=== PATIENT | female | born 1990 | race Hispanic/Latino ===

== ENCOUNTER 2019-07-06 15:57 | Emergency (ER) | payer SELFPAY ==
[~2019-07-06] VITALS: Ht 157.5 cm; Wt 57.2 kg
--- OUTSIDE RECORDS SUMMARY | 2019-07-06 16:01 | XMS REPORT ---
Author [facility] Address Unknown Phone Unavailable Care Team Providers Care Hairspring Cutter Name Role Phone YANG VILLALTA Unavailable Unavailable Payers Payer Name Policy Type Policy Number Effective Date Expiration Date Problems This patient has no known problems. Allergies, Adverse Reactions, Alerts Allergy Name Allergy Type Status Severity Reaction(s) Onset Date Inactive Date Treating Clinician Comments No Known Allergies DA Active U 2012-12-30 00:00:00 Medications This patient has no known medications. Results Test Description Test Time Test Comments Text Results Atomic Results Result Comments HCG BLOOD 2019-06-17 20:23:00 HCG BLOOD (test code=HCG) < 2.39 IU/L HCG in non- individuals < 5.0 IU/L (mIU/mL)HCG results greater than or equal to 25 IU/L are consideredPositive. Detection of very low levels of HCG does not excludepregnancy. Repeat testing after 48 hours is recommended. Gestational Age:1-10 weeks 44.71-256,740 IU/L(mIU/mL)11-15 weeks 11,556-256,380 IU/L(mIU/mL)16-22 weeks 7,480.8-111,954 IU/L(mIU/mL)23-40 weeks 1,531.1-101,556 IU/L(mIU/mL) This assay should not be used to diagnose any conditionunrelated to . - CT NECK [id number] 20:22:00 FAX: Jany Valiente [phone] [place]: St: REG Name: SAUNDRA WOODWARDwood : 8 Age/S: 28/F [address] Unit: [id number] Loc: [place] [address] Phys: Jany Junior CIRCLE EDGER Acct: [id number] Dis Date: Status: REG ER PHONE #: [phone] Exam Date: 06/17/20192004 FAX #: [phone] Reason: pain right side neck EXAMS: CPT CODE: [id number] CT NECK W/CONTRAST 07229 T18 EXAM: CT NECK WITH CONTRAST HISTORY: pain right side neck TECHNIQUE: Axial CT images were obtained of the neck with intravenous contrast. Cor onal and sagittal reformatted images were created from the data set. One or more of the following dose reduction techniques were used: Automated exposure control, adjustment of the mA and/or kV according to p atient size, and/or iterative reconstruction. COMPARISON: None FINDINGS: The aerodigestive structures are within normal limit s. Specifically, the nasal cavity, nasopharynx, oral cavity, oropharynx, hypopharynx, larynx, and visualized trachea and esophagus demonstrate no m asses or abnormal enhancement. No pathologically enlarged, n ecrotic, or otherwise abnormal lymph nodes. The parotid and submandibular glands appear within normal limits. The thyroid gland is no rmal in size without focal abnormality. Evaluation of the visualiz ed portions of the brain parenchyma and orbits demonstrates no abnormality . The visualized paranasal sinuses are predominantly clear. The tympanom astoid cavities are unopacified. There is normal intravascular enhancemen t. Limited evaluation of the lung apices demonstrates no abnormali ty. The visualized osseous structures are within normal limits. Following administration of intravenous contrast material, there is no abnormal enhancement. IMPRESSION: Normal neck CT. PAGE 1 Signed Report (CONTINUED) FAX: Jany Valiente [phone] [place]: St: REG ----- Name: SAUNDRA HAILE : 1990 Age/S: 28/F [address] Unit: [id number] Loc: [place] [address] Phys: Jany Sims NP Acct: [id number] Dis Date: Status: REG ER PHON E #: [phone] Exam Date: 06/17/20192004 FAX #: Reason: pain right side neck EXAM S: CPT CODE: [id number] CT NEC K W/CONTRAST 63835 <Continued> at 2021 Reported and signed by: Juan Posada MD CC: Jany Junior NP Technologist: Joyce Persaud Trnscrd Dt/Tm: 06/17/2019 (2021) [email or web address] Orig Print D/T: S: 06/17/2019 (2024 PAGE 2 Signed Report BEDSIDE [id number] 20:09:00* Test Item Value Reference Range Comments BEDSIDE CREATININE (test code=CREATBED) 0.6 mg/dL 0.52-1.04 COMPREHENSIVE METABOLIC [id number] 19:52:00* Test Item Value Reference Range Comments SODIUM (test code=NA) 140 mmol/L 137-145 POTASSIUM (test code=K) 4.2 mmol/L 3.4-5.0 CHLORIDE (test code=CL) 101 mmol/L 98-107 CARBON DIOXIDE (test code=CO2) 27 mmol/L 22-30 GLUCOSE (test code=GLU) 107 mg/dL 74-106 BLOOD UREA NITROGEN (test code=BUN) 11 mg/dL 7-17 GLOMERULAR FILTRATION RATE (test code=GFR) 125 >60 The estimated glomerular filtration rate is computed usingpatient race, age (>18), sex, and serum creatinine. If anyof the needed data elements are missing the Laboratory cannot compute an estimation of the glomerular filtration rate. CREATININE (test code=CREAT) 0.6 mg/dL 0.5-1.0 TOTAL PROTEIN (test code=PROT) 8.5 g/dL 6.3-8.2 ALBUMIN (test code=ALB) 4.6 g/dL 3.5-5.0 CALCIUM (test code=CA) 10.2 mg/dL 8.4-10.2 BILIRUBIN TOTAL (test code=BILT) 0.4 mg/dL 0.2-1.3 BILIRUBIN CONJUGATED (test code=BILCON) 0 mg/dL 0-0.3 ~~~~~~~~~~~~~~~~~~~~~~~~~~~~~~~~~~~~~~~~~~~~~~~~~~~~~~~~~~~~CONJUGATED BILIRUBIN IS THE REPLACEMENT ASSAY FOR DIRECTBILIRUBIN.~~~~~~~~~~~~~~~~~~~~~~~~~~~~~~~~~~~~~~~~~~~~~~~~~~~~~~~~~~~~ BILIRUBIN UNCONJUGATED (test code=BILUNC) 0.3 mg/dL 0-1.1 SGOT/AST (test code=AST) 18 U/L 15-46 SGPT/ALT (test code=ALT) 24 U/L 13-69 ALKALINE PHOSPHATASE (test code=ALKP) 98 U/L 38-126 CBC W/AUTO [id number] 19:42:00* Test Item Value Reference Range Comments WHITE BLOOD CELL (test code=WBC) 12.2 x10 3/uL 5.0-12.0 RED BLOOD CELL (test code=RBC) 4.93 x10 6/uL 4.20-5.40 HEMOGLOBIN (test code=HGB) 13.4 g/dL 12.0-16.0 HEMATOCRIT (test code=HCT) 41.0 % 36.0-46.0 MEAN CELL VOLUME (test code=MCV) 83 fL 81-99 MEAN CELL HGB (test code=MCH) 27.2 pg 27-31 MEAN CELL HGB CONCENTRATION (test code=MCHC) 32.7 g/dL 33-37 RED CELL DISTRIBUTION WIDTH (test code=RDW) 14.3 % 11.5-15.5 PLATELET COUNT (test code=PLT) 230 x10 3/uL 130-400 MEAN PLATELET VOLUME (test code=MPV) 12.4 fL 9.4-16.4 NEUTROPHIL % (test code=NT%) 70.9 % 43-65 IMMATURE GRANULOCYTE % (test code=IG%) 0.3 % 0.0-2.0 LYMPHOCYTE % (test code=LY%) 22.8 % 20.5-45.5 MONOCYTE % (test code=MO%) 5.4 % 5.5-11.7 EOSINOPHIL % (test code=EO%) 0.4 % 0.9-2.9 BASOPHIL % (test code=BA%) 0.2 % 0.2-1.0 NUCLEATED RBC % (test code=NRBC%) 0.0 % 0-1.0 NEUTROPHIL # (test code=NT#) 8.68 x10 3/uL 2.2-4.8 IMMATURE GRANULOCYTE # (test code=IG#) 0.04 x10 3/uL 0-0.03 LYMPHOCYTE # (test code=LY#) 2.79 x10 3/uL 1.3-2.9 MONOCYTE # (test code=MO#) 0.66 x10 3/uL 0.3-0.8 EOSINOPHIL # (test code=EO#) 0.05 x10 3/uL 0.0-0.2 BASOPHIL # (test code=BA#) 0.02 x10 3/uL 0.0-0.1 RAD, CHEST, 1 VIEW, NON [id number] 03:27:00Reason for exam:->chest painIs the patient ?->UnknownShould this be performed at the bedside?->YesFINAL REPORT Chest one view. Clinical history: chest pain Comparison: None. Technique: A single frontal view of the chest was obtained. Findings: The cardiomediastinal contours are normal. There is no focal pulmonary consolidation, pleural effusion or pneumothorax. There is no pulmonary edema. The bony thorax is unremarkable. Impression: Clear lungs. No pneumothorax. Signed: Randolph Cuevas [facility] Verified Date/Time: 05/22/2019 03:27:04 Kathe ctronically signed by: RANDOLPH CUEVAS MD on 05/22/2019 03:27 AM COMPREHENSIVE METABOLIC [id number] 03:05:00* Test Item Value Reference Range Comments TOTAL PROTEIN (BEAKER) (test ardo=140) 8.8 gm/dL 6.0-8.3 ALBUMIN (BEAKER) (test jeti=7637) 4.6 g/dL 3.5-5.0 ALKALINE PHOSPHATASE (BEAKER) (test sgxf=021) 135 U/L 40-150 BILIRUBIN TOTAL (BEAKER) (test fdpo=730) 0.3 mg/dL 0.2-1.2 SODIUM (BEAKER) (test pjrt=808) 137 meq/L 136-145 POTASSIUM (BEAKER) (test tgax=330) 3.6 meq/L 3.5-5.1 CHLORIDE (BEAKER) (test twfm=095) 105 meq/L 98-107 CO2 (BEAKER) (test qtgd=872) 22 meq/L 22-29 BLOOD UREA NITROGEN (BEAKER) (test hnhs=139) 15 mg/dL 7-21 CREATININE (BEAKER) (test wkkj=928) 0.94 mg/dL 0.57-1.25 GLUCOSE RANDOM (BEAKER) (test dkhg=456) 117 mg/dL 70-105 CALCIUM (BEAKER) (test xubb=731) 9.7 mg/dL 8.4-10.2 AST (SGOT) (BEAKER) (test hxor=529) 19 U/L 5-34 ALT (SGPT) (BEAKER) (test fplf=329) 18 U/L 6-55 EGFR (BEAKER) (test ibri=9193) mL/min/1.73 sq m INSUFFICIENT CLINICAL DATA TO CALCULATE ESTIMATED GFR. SCREEN, [id number] 02:56:00* Test Item Value Reference Range Comments TEST URINE (BEAKER) (test sddm=778) Negative URINALYSIS WITH MICROSCOPIC IF [id number] 02:55:00* Test Item Value Reference Range Comments COLOR (BEAKER) (test diwi=558) Light Yellow CLARITY (BEAKER) (test zqeo=507) Clear SPECIFIC GRAVITY UA (BEAKER) (test fywi=077) 1.003 1.001-1.035 PH UA (BEAKER) (test koia=370) 6.5 5.0-8.0 PROTEIN UA (BEAKER) (test ltfv=373) Negative Negative GLUCOSE UA (BEAKER) (test avgj=793) Negative Negative KETONES UA (BEAKER) (test couu=057) 10 mg/dL Negative BILIRUBIN UA (BEAKER) (test xufo=771) Negative Negative BLOOD UA (BEAKER) (test knwb=737) Negative Negative NITRITE UA (BEAKER) (test sxvv=400) Negative Negative LEUKOCYTE ESTERASE UA (BEAKER) (test okdg=150) Negative Negative UROBILINOGEN UA (BEAKER) (test fqfk=493) 0.2 mg/dL 0.2-1.0 SOURCE(BEAKER) (test txeb=1732) CBC W/PLT COUNT & AUTO [id number] 02:36:00* Test Item Value Reference Range Comments WHITE BLOOD CELL COUNT (BEAKER) (test eqxo=557) 12.0 K/ L 3.5-10.5 RED BLOOD CELL COUNT (BEAKER) (test voqn=610) 4.57 M/ L 3.93-5.22 HEMOGLOBIN (BEAKER) (test ohfd=029) 12.6 GM/DL 11.2-15.7 HEMATOCRIT (BEAKER) (test onkp=429) 39.3 % 34.1-44.9 MEAN CORPUSCULAR VOLUME (BEAKER) (test eoan=923) 86.0 fL 79.4-94.8 MEAN CORPUSCULAR HEMOGLOBIN (BEAKER) (test uhnl=387) 27.6 pg 25.6-32.2 MEAN CORPUSCULAR HEMOGLOBIN CONC (BEAKER) (test dpfj=100) 32.1 GM/DL 32.2-35.5 RED CELL DISTRIBUTION WIDTH (BEAKER) (test alqa=219) 14.6 % 11.7-14.4 PLATELET COUNT (BEAKER) (test eeis=584) 256 K/CU MM 150-450 MEAN PLATELET VOLUME (BEAKER) (test wehw=334) 12.3 fL 9.4-12.3 NUCLEATED RED BLOOD CELLS (BEAKER) (test jbit=371) 0 /100 WBC 0-0 NEUTROPHILS RELATIVE PERCENT (BEAKER) (test jhjp=217) 77 % LYMPHOCYTES RELATIVE PERCENT (BEAKER) (test nwtr=668) 17 % MONOCYTES RELATIVE PERCENT (BEAKER) (test whrs=746) 6 % EOSINOPHILS RELATIVE PERCENT (BEAKER) (test cbre=947) 0 % BASOPHILS RELATIVE PERCENT (BEAKER) (test xeme=208) 0 % NEUTROPHILS ABSOLUTE COUNT (BEAKER) (test wvqx=984) 9.17 K/ L 1.56-6.13 LYMPHOCYTES ABSOLUTE COUNT (BEAKER) (test dgcd=186) 1.99 K/ L 1.18-3.74 MONOCYTES ABSOLUTE COUNT (BEAKER) (test iuop=557) 0.71 K/ L 0.24-0.36 EOSINOPHILS ABSOLUTE COUNT (BEAKER) (test zzpo=775) 0.03 K/ L 0.04-0.36 BASOPHILS ABSOLUTE COUNT (BEAKER) (test oznz=276) 0.04 K/ L 0.01-0.08 IMMATURE GRANULOCYTES-RELATIVE PERCENT (BEAKER) (test zoqc=3791) 0 % 0-1 - XR CHEST 1 [id number] 18:58:00 [place]: St: PRE Name: SAUNDRA TATE [facility] : [birth year] Age/S: 28/F [address] Unit #: [id number] Loc: [place] [address] Phys: Claribel Kumari NP Acct: [id number] Dis Date: Status: PRE ER PHONE #: [phone] Exam Date: 05/19/2019 1855 FAX #: [phone] Reason: PAIN TO LEFT SCAPULAR REGION EXAMS: CPT CODE: [id number] XR CHEST 1 V 58065 Dictation location B2 Portable chest one view. HISTORY:PAIN TO LEFT SCAPULAR REGION, S HORTNESS OF BREATH COMMENT: No comparison. The lungs are clear an d normally expanded. The heart and pulmonary vasculature is normal. Visual ized soft tissues and skeletal structures are unremarkable. IMPRESSION: No active disease in the chest. Electronica lly Signed by Inez Douglass MD on 05/19/2019 at 1858 Report ed and signed by: Inez Douglass MD CC: Technologist: NONI MARIA; STUDENT 2ND YEAR [facility] [employer] Date/Time/By: 05/19/2019 (1857) : By: Neftali VickersLIFEPOINT HEALTH PAGE 1 Signed Report [place]: St: P RE - Name: SAUNDRA HAILE [facility] Deshawn Hutson OB: 1990 Age/S: 28/F [address] Unit #: [id number] Loc: [place] [address] Phys: Clingaaurora n,Claribel CARIAS Acct: [id number] D is Date: Status: PRE ER PHONE #: Exam Date: 05/19/2019 185 FAX #: Reason: PAIN TO LEFT SCAPULAR REGION EXAMS: CPT CODE: [id number] XR CHEST 1 V 79383 <Continued> Orig Print D/T: S: 05/19/2019 (1901) PAGE 2 Signed Report
--- OUTSIDE RECORDS SUMMARY | 2019-07-06 16:01 | XMS REPORT | Clinical Summary ---
Author Author [facility] [employer] [facility] [employer] Address Unknown Phone Unavailable Care Team Providers Care Fitness And Wellness Instructor Name Role Phone PCP Unavailable Allergies No Known Allergies Medications Not on file Active Problems Not on file Encounters Care Team Description Date Type Specialty 06/27/2019 Emergency Emergency Medicine after 07/05/2018 Social History Date Tobacco Use Types Packs/Day Years Used Never Assessed Sex Assigned at Date Recorded Not on file Industry Job Start Date Occupation Not on file Not on file Not on file Travel End Travel History Travel Start No recent travel history available. 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
--- OUTSIDE RECORDS SUMMARY | 2019-07-06 16:01 | XMS REPORT | Clinical Summary ---
Author Author [facility] Address Unknown Phone Unavailable Care Team Providers Care Logging Shovel Operator Name Role Phone PCP Unavailable Allergies No Known Allergies Medications No known medications Active Problems Not on file Encounters Care Team Description Date Type Specialty Andres Michelle MD Near syncope (Primary Dx) 05/22/2019 Emergency Emergency Medicine 05/22/2019 Orders Only General Internal Medicine 05/22/2019 Travel after 07/05/2018 Social History Date Tobacco Use Types Packs/Day Years Used Never Smoker Smokeless Tobacco: Never Used Alcohol Use Drinks/Week oz/Week Comments No Alcohol Habits Answer Date Recorded How often do you have a drink containing alcohol? Never 05/22/2019 How many drinks containing alcohol do you have on Not asked a typical day when you are drinking? How often do you have six or more drinks on one Not asked occasion? Sex Assigned at Date Recorded Not on file Industry Job Start Date Occupation Not on file Not on file Not on file Travel End Travel History Travel Start No recent travel history available. Last Filed Vital Signs Time Taken Vital Sign Reading 05/22/2019 4:30 AM CDT Blood Pressure 109/57 05/22/2019 4:30 AM CDT Pulse 77 05/22/2019 1:18 AM CDT Temperature 36.7 C (98.1 F) 05/22/2019 4:30 AM CDT Respiratory Rate 24 05/22/2019 4:30 AM CDT Oxygen Saturation 100% - Inhaled Oxygen - Concentration 05/22/2019 1:18 AM CDT Weight 64.9 kg (143 lb) 05/22/2019 1:18 AM CDT Height 154.9 cm (5' 1") 05/22/2019 1:18 AM CDT Body Mass Index 27.02 Plan of Treatment Not on file Procedures Comments Procedure Name Priority Date/Time Associated Diagnosis REPORT OF PROCEDURE - 05/25/2019 ENDOSCOPY SCAN 2:22 PM CDT XR CHEST 1 VIEW STAT 05/22/2019 PORTABLE/BEDSIDE 3:11 AM CDT URINALYSIS WITH STAT 05/22/2019 MICROSCOPIC IF INDICATED 2:25 AM CDT SCREEN, URINE STAT 05/22/2019 2:25 AM CDT CBC W/PLT COUNT & AUTO STAT 05/22/2019 DIFFERENTIAL 2:23 AM CDT CBC W/PLT COUNT & AUTO STAT 05/22/2019 DIFFERENTIAL 2:23 AM CDT COMPREHENSIVE METABOLIC STAT 05/22/2019 PANEL 2:22 AM CDT ECG 12-LEAD Routine 05/22/2019 1:26 AM CDT ECG 12-LEAD Routine 05/22/2019 1:26 AM CDT Procedure Note - Interface, External Ris In - 05/22/2019 6:51 PM CDT Ventricula r Rate 91 BPM Atrial Rate 91 BPM P-R Interval 140 ms QRS Duration 80 ms Q-T Interval 366 ms QTC Calculatio n(Bazett) 450 ms P Karthaus 37 degrees R Karthaus 44 degrees T Karthaus 41 degrees Normal sinus rhythm Possible Left atrial enlargemen t Borderline ECG No previous ECGs available after 07/05/2018 Results * EKG-SCANNED (05/25/2019 2:22 PM CDT) Narrative Performed At * XR chest 1 view portable / bedside (05/22/2019 3:11 AM CDT) Specimen Narrative Performed At FINAL REPORT [facility] Chest one view. Clinical history: chest pain Comparison: None. Technique: A single frontal view of the chest was obtained. Findings: The cardiomediastinal contours are normal. There is no focal pulmonary consolidation, pleural effusion or pneumothorax. There is no pulmonary edema. The bony thorax is unremarkable. Impression: Clear lungs. No pneumothorax. Signed: Teresa Cuevas MD Report Verified Date/Time:05/22/2019 03:27:04 Procedure Note Interface, External Ris In - 05/22/2019 3:29 AM CDT FINAL REPORT Chest one view. Clinical history: chest pain Comparison: None. Technique: A single frontal view of the chest was obtained. Findings: The cardiomediastinal contours are normal. There is no focal pulmonary consolidation, pleural effusion or pneumothorax. There is no pulmonary edema. The bony thorax is unremarkable. Impression: Clear lungs. No pneumothorax. Signed: Teresa Cuevas MD Report Verified Date/Time: 05/22/2019 03:27:04 Performing Organization Address City/[facility]/Zipcode Phone Number GE RIS * Urinalysis with Microscopic If Indicated (05/22/2019 2:25 AM CDT) Color, UA Light Yellow [facility] Clarity, UA Clear [facility] Specific Gordon, UA 1.003 1.001 - 1.035 [facility] pH, UA 6.5 5.0 - 8.0 [facility] Protein, UA Negative Negative [facility] Glucose, UA Negative Negative [facility] Ketones, UA 10 mg/dL (A) Negative [facility] Bilirubin, UA Negative Negative [facility] Blood, UA Negative Negative [facility] Nitrite, UA Negative Negative [facility] Leukocytes, UA Negative Negative [facility] Urobilinogen, UA 0.2 0.2 - 1.0 mg/dL [facility] Specimen Source [facility] Specimen Urine Performing Organization Address City/[facility]/Zipcode Phone Number [facility] [address] [place] [address] [facility] * Screen, urine (05/22/2019 2:25 AM CDT) Preg Test, Ur Negative [facility] Specimen Urine Performing Organization Address City/State/Zipcode Phone Number [facility] [address] [place] [address] MED[facility] * CBC with platelet count + automated diff (05/22/2019 2:23 AM CDT) WBC 12.0 (H) 3.5 - 10.5 K/L [facility] RBC 4.57 3.93 - 5.22 M/L [facility] Hemoglobin 12.6 11.2 - 15.7 GM/DL [facility] Hematocrit 39.3 34.1 - 44.9 % [facility] MCV 86.0 79.4 - 94.8 fL [facility] MCH 27.6 25.6 - 32.2 pg [facility] MCHC 32.1 (L) 32.2 - 35.5 GM/DL [facility] RDW 14.6 (H) 11.7 - 14.4 % [facility] Platelets 256 150 - 450 K/CU MM [facility] MPV 12.3 9.4 - 12.3 fL [facility] nRBC 0 0 - 0 /100 WBC [facility] % Neutros 77 % [facility] % Lymphs 17 % [facility] % Monos 6 % [facility] % Eos 0 % [facility] % Baso 0 % [facility] # Neutros 9.17 (H) 1.56 - 6.13 K/L [facility] # Lymphs 1.99 1.18 - 3.74 K/L [facility] # Monos 0.71 (H) 0.24 - 0.36 K/L [facility] # Eos 0.03 (L) 0.04 - 0.36 K/L [facility] # Baso 0.04 0.01 - 0.08 K/L [facility] Immature 0 0 - 1 % [facility] Granulocytes-Relative [facility] Specimen Blood Performing Organization Address City/State/Zipcode Phone Number [facility] [address] [place] [address] MED[facility]ENTER * Comprehensive metabolic panel (05/22/2019 2:22 AM CDT) Protein, Total 8.8 (H) 6.0 - 8.3 gm/dL [facility] Albumin 4.6 3.5 - 5.0 g/dL [facility] Alkaline Phosphatase 135 40 - 150 U/L [facility] Total Bilirubin 0.3 0.2 - 1.2 mg/dL [facility] Sodium 137 136 - 145 meq/L [facility] Potassium 3.6 3.5 - 5.1 meq/L [facility] Chloride 105 98 - 107 meq/L [facility] CO2 22 22 - 29 meq/L [facility] BUN 15 7 - 21 mg/dL [facility] Creatinine 0.94 0.57 - 1.25 mg/dL [facility] Glucose 117 (H) 70 - 105 mg/dL [facility] Calcium 9.7 8.4 - 10.2 mg/dL [facility] AST 19 5 - 34 U/L [facility] ALT 18 6 - 55 U/L [facility] EGFR Comment: INSUFFICIENT CLINICAL mL/min/1.73 sq m [facility] DATA TO CALCULATE ESTIMATED [facility] GFR. Specimen Blood Performing Organization Address City/State/Zipcode Phone Number [facility] [address] [place] [address] [facility] * ECG 12 lead (05/22/2019 1:26 AM CDT) Specimen Narrative Performed At Ventricular Rate 91 BPM GE MUSE Atrial Rate 91 BPM P-R Interval 140 ms QRS Duration 80 ms Q-T Interval 366 ms QTC Calculation(Bazett) 450 ms P Karthaus 37 degrees R Karthaus 44 degrees T Karthaus 41 degrees Normal sinus rhythm Within normal limits No previous ECGs available Confirmed by MD Jay Roberto ([id number]) on 05/23/2019 7:58:23 AM Procedure Note Interface, External Ris In - 05/23/2019 7:58 AM CDT Ventricular Rate 91 BPM Atrial Rate 91 BPM P-R Interval 140 ms QRS Duration 80 ms Q-T Interval 366 ms QTC Calculation(Bazett) 450 ms P Karthaus 37 degrees R Karthaus 44 degrees T Karthaus 41 degrees Normal sinus rhythm Within normal limits No previous ECGs available Confirmed by MD Jay Roberto ([id number]) on 05/23/2019 7:58:23 AM Performing Organization Address City/State/Zipcode Phone Number ARABELLA MYRICK after 07/05/2018 Insurance Payer Benefit Subscriber ID Type Phone Address Plan / Group [employer]UE [employer] xxxxxxxxxxxx PPO [phone] [address] [place] [address] O
[2019-07-06 16:37] LABS: BILIRUBIN,URINE NEGATIVE (NEGATIVE); CLARITY,URINE CLEAR (CLEAR); COLOR,URINE YELLOW (YELLOW); KETONES,URINE NEGATIVE (NEGATIVE); LEUKOCYTE ESTERASE ,URINE NEGATIVE (NEGATIVE); NITRITE,URINE NEGATIVE (NEGATIVE); PROTEIN,URINE DIPSTICK NEGATIVE (NEGATIVE); URINE UROBILINOGEN 0.2 mg/dL (0.2 - 1)
[2019-07-06 16:39] LABS: PREGNANCY TEST, URINE NEGATIVE (NEGATIVE)
[2019-07-06 16:57] LABS: BACTERIA,URINE MODERATE /HPF; EPITHELIAL CELLS,URINE FEW /LPF; RENAL EPITHELIAL CELLS,URINE RARE
== END 2019-07-06 18:09 | disposition left against medical advice (07) ==
LOC: ER 15:57
DX: M54.2 Cervicalgia (principal); R42 Dizziness and giddiness
CPT/HCPCS: 81001; 81025; 93005